=== PATIENT | male | born 1990 | race American Indian/Alaskan Native ===

== ENCOUNTER 2016-07-27 14:37 | Emergency (ER) | payer SELFPAY ==
--- NOTE | 2016-07-27 15:38 | Emergency Department Report ---
Chief Complaint: Urogenital-Male Stated Complaint: BUMP ON GENTILES Time Seen by Provider: 07/27/16 15:34 - HPI History of Present Illness: pt c/o bump on his "vanessa" - ROS Review of Systems: - discharge - dysuria - Exam Vital Signs: Vital Signs 07/27/16 15:30 Temperature 97.7 F Pulse Rate 107 H Respiratory 18 Rate Blood Pressure 125/66 O2 Sat by Pulse 100 Oximetry Physical Exam: pt looks well, non toxic gu exam not done in triage MSE screening note: Focused history and physical exam performed. Due to findings the following was ordered: ED Disposition for MSE Condition: Stable
--- NOTE | 2016-07-27 19:35 | Emergency Department Report ---
ED Male HPI - General Chief complaint: Urogenital-Male Stated complaint: BUMP ON GENTILES Time Seen by Provider: 07/27/16 15:34 Source: patient Mode of arrival: Ambulatory Limitations: No Limitations - History of Present Illness Initial comments: This is a 26-year-old male nontoxic well-nourished appearance. Presents with a bump in his penis. Patient stated noticed this morning. Patient stated had sexual intercourse this whole week including yesterday. Patient denies any new sexual partner. Patient is a heterosexual. Patient states tried to remove the bump with no success but has noticed slightly bleeding. Patient denies any urinary discharge, dysuria, or pain. Denies using condoms during sexual intercourse. Patient is unaware of partners STD hx or symptoms. MD Complaint: other (1mm penile ulcer ) -: Sudden, This morning Location: penis Radiation: none Severity scale (0 -10): 0 denies other symptoms. denies: discharge, swelling, mass, rash, urinary retention, blood in urine, dysuria, fever, nausea/vomiting, incontinence - Related Data Previous Rx's Medication Instructions Recorded Last Taken Type Dicyclomine [Bentyl] 10 mg PO QID PRN #20 capsule 12/03/15 Unknown Rx Famotidine [Pepcid] 20 mg PO QDAY #30 tablet 12/03/15 Unknown Rx Ondansetron [Zofran Odt] 4 mg PO QID PRN #20 tab.rapdis 12/03/15 Unknown Rx Allergies Allergy/AdvReac Type Severity Reaction Status Date / Time No Known Allergies Allergy Verified 07/07/15 13:28 ED Review of Systems ROS: Stated complaint: BUMP ON GENTILES Other details as noted in HPI Constitutional: denies: chills, fever Eyes: denies: eye pain, eye discharge, vision change ENT: denies: ear pain, throat pain Respiratory: denies: cough, shortness of breath, wheezing Cardiovascular: denies: chest pain, palpitations Endocrine: no symptoms reported Gastrointestinal: denies: abdominal pain, nausea, diarrhea Genitourinary: denies: urgency, dysuria Musculoskeletal: denies: back pain, joint swelling, arthralgia Skin: denies: rash, lesions Neurological: denies: headache, weakness, paresthesias Psychiatric: denies: anxiety, depression Hematological/Lymphatic: denies: easy bleeding, easy bruising ED Past Medical Hx - Past Medical History Previous Medical History?: No - Surgical History Past Surgical History?: No - Social History Smoking Status: Never Smoker Substance Use Type: Alcohol, Marijuana - Medications Home Medications: Home Medications Medication Instructions Recorded Confirmed Last Taken Type Dicyclomine [Bentyl] 10 mg PO QID PRN #20 capsule 12/03/15 Unknown Rx Famotidine [Pepcid] 20 mg PO QDAY #30 tablet 12/03/15 Unknown Rx Ondansetron [Zofran Odt] 4 mg PO QID PRN #20 tab.rapdis 12/03/15 Unknown Rx ED Physical Exam - General Limitations: No Limitations General appearance: alert, in no apparent distress - Head Head exam: Present: atraumatic, normocephalic - Eye Eye exam: Present: normal appearance - ENT ENT exam: Present: mucous membranes moist - Neck Neck exam: Present: normal inspection - Respiratory Respiratory exam: Present: normal lung sounds bilaterally. Absent: respiratory distress - Cardiovascular Cardiovascular Exam: Present: regular rate, normal rhythm. Absent: systolic murmur, diastolic murmur, rubs, gallop - GI/Abdominal GI/Abdominal exam: Present: soft, normal bowel sounds - Rectal Rectal exam: Present: deferred - exam: Present: normal inspection. Absent: testicular tenderness, urethral discharge, scrotal swelling, vertical testicular lie, circumcision External exam: Present: normal external exam, other (1mm penile ulcer). Absent : erythema, swelling - Expanded Exam Expanded Male exam: Absent: phimosis, paraphimosis, penile swelling, induration, erythema, perineal induration, balanitis - Extremities Exam Extremities exam: Present: normal inspection - Back Exam Back exam: Present: normal inspection - Neurological Exam Neurological exam: Present: alert, oriented X3 - Psychiatric Psychiatric exam: Present: normal affect, normal mood - Skin Skin exam: Present: warm, dry, intact, normal color. Absent: rash ED Course Vital Signs 07/27/16 07/27/16 15:30 20:05 Temperature 97.7 F Pulse Rate 107 H 50 L Respiratory 18 18 Rate Blood Pressure 125/66 Blood Pressure 136/84 [Right] O2 Sat by Pulse 100 100 Oximetry - Reevaluation(s) Reevaluation #1: 07/27/16 20:26 Vital Signs 07/27/16 07/27/16 15:30 20:05 Temperature 97.7 F Pulse Rate 107 H 50 L Respiratory 18 18 Rate Blood Pressure 125/66 Blood Pressure 136/84 [Right] O2 Sat by Pulse 100 100 Oximetry Reevaluation #2: 07/27/16 20:28 Vital Signs (72 hours) 07/27/16 07/27/16 07/27/16 15:30 20:05 20:28 Temperature 97.7 F Pulse Rate 107 H 50 L 78 Respiratory 18 18 Rate Blood Pressure 125/66 Blood Pressure 136/84 [Right] O2 Sat by Pulse 100 100 Oximetry ED Medical Decision Making - Medical Decision Making ED course: 26-year-old male that presents with 1 mm penile ulcer. 1- administered penicillin G 2.4 IM for possibility of syphilis. 2- I instructed it the patient that we aren't able to rule out HSV VS. Syphilis. 3- I instructed the patient to report to health department for further evaluation and treatment. 4- at this time the patient does not seem toxic or ill appearance. 5- patient is aware and agrees to discharge plan and treatment. No further questions noted at this time. Critical care attestation.: If time is entered above; I have spent that time in minutes in the direct care of this critically ill patient, excluding procedure time. ED Disposition Clinical Impression: Penile ulcer Disposition: DISCHARGED TO HOME OR SELFCARE Is pt being admited?: No Does the pt Need Aspirin: No Condition: Stable Instructions: Genital Herpes Simplex (ED), Syphilis (ED) Additional Instructions: Please follow up with health department further evaluation as was possible. Symptoms worsen this for better management. Referrals: PRIMARY CARE, [Primary Care Provider] - 3-5 Days [facility] [Referring] - [facility]
[2016-07-27] MEDS ORDERED: BICILLIN L-A IM ONE (19:42)
[2016-07-27 20:06] VITALS: BP 136/84
== END 2016-07-27 20:43 | disposition home or self-care (01) ==
LOC: ED 14:37
DX: N48.5 Ulcer of penis (principal); F12.90 Cannabis use, unspecified, uncomplicated
CPT/HCPCS: 96372; 99282; J0561

== ENCOUNTER 2018-09-18 16:56 | Emergency (ER) | payer SELFPAY ==
--- NOTE | 2018-09-18 18:38 | XRay Report ---
PROCEDURE: XR FOOT 3+V LT TECHNIQUE: Left foot series 3 views HISTORY: left foot pain COMPARISONS: FINDINGS: No fracture identified. No dislocation seen. Note is made of a dorsal osteophyte anterior process of the talus. No acute soft tissue abnormality identified. IMPRESSION: Dorsal osteophyte at the anterior process of the talus. This is nonspecific but could be seen with ta rsal coalition. Consider follow-up MRI if continued clinical concern.. This document is electronically signed by Chago Cifuentes MD., September 18 2018 06:36:05 PM ET
[2018-09-18] MEDS ORDERED: IBUPROFEN PO ONE (21:08)
[2018-09-18] MEDS ORDERED: DELTASONE PO ONE (21:08)
--- NOTE | 2018-09-18 21:50 | Emergency Department Report ---
ED Extremity Problem HPI - General Chief complaint: Extremity Problem,Nontraumatic Stated complaint: LFT FOOT/CANT PUT PRESSURE Time Seen by Provider: 09/18/18 21:00 Source: patient Mode of arrival: Ambulatory Limitations: No Limitations - History of Present Illness Initial comments: Patient is a 28-year-old -[place] male with no past medical history presents to the ED with complaint of acute onset persistent nontraumatic right foot pain mainly in the first MTP joint with swelling for the last 3 days. Patient admits to eating a lot of seafood. Patient denies fall, traumatic injury, nausea, vomiting, numbness and tingling of left foot, left ankle pain, dizziness, back pain, traumatic injury or fall and hit her lifting. MD Complaint: extremity pain (left foot), extremity swelling (left foot), joint swelling (left foot), joint paint (left foot) -: Sudden, days(s) (3) Location: left, lower extremity (left foot ), toe (lef great toe and 1st MTP joint) History of Same: No -: Yes myalgia, Yes arthralgia, No fever, No associated dyspnea, No associated chest pain Radiation: none Severity scale (0 -10): 10 Quality: aching, sharp Consistency: constant Improves with: nothing Worsens with: weight bearing, walking, exertion, palpation Associated Symptoms: denies other symptoms. denies: chest pain, shortness of breath, fever, myalgias, arthralgias, rash - Related Data Previous Rx's Medication Instructions Recorded Last Taken Type Dicyclomine [Bentyl] 10 mg PO QID PRN #20 capsule 12/03/15 Unknown Rx Famotidine [Pepcid] 20 mg PO QDAY #30 tablet 12/03/15 Unknown Rx Ondansetron [Zofran Odt] 4 mg PO QID PRN #20 tab.rapdis 12/03/15 Unknown Rx Ibuprofen [Motrin] 600 mg PO Q8H PRN #30 tablet 12/18/17 Unknown Rx traMADol [Ultram 50 MG tab] 50 mg PO Q6HR PRN #20 tablet 12/18/17 Unknown Rx Colchicine 0.6 mg PO Q8H PRN #15 capsule 09/18/18 Unknown Rx Indomethacin 50 mg PO Q8H PRN #30 capsule 09/18/18 Unknown Rx predniSONE [Deltasone] 60 mg PO QDAY #15 tab 09/18/18 Unknown Rx traMADol [Ultram] 50 mg PO Q6HR PRN #15 tablet 09/18/18 Unknown Rx Allergies Allergy/AdvReac Type Severity Reaction Status Date / Time No Known Allergies Allergy Verified 07/07/15 13:28 ED Review of Systems ROS: Stated complaint: LFT FOOT/CANT PUT PRESSURE Other details as noted in HPI Constitutional: no symptoms reported. denies: chills, fever Eyes: denies: eye pain, eye discharge, vision change ENT: denies: ear pain, throat pain Respiratory: denies: cough, shortness of breath, wheezing Cardiovascular: denies: chest pain, palpitations Endocrine: no symptoms reported Gastrointestinal: denies: abdominal pain, nausea, diarrhea Genitourinary: denies: urgency, dysuria Musculoskeletal: joint swelling (left foot mild swelling), arthralgia (left foot). denies: back pain Skin: denies: rash, lesions Neurological: denies: headache, weakness, paresthesias Psychiatric: denies: anxiety, depression Hematological/Lymphatic: denies: easy bleeding, easy bruising ED Past Medical Hx - Past Medical History Previous Medical History?: No Hx Asthma: No - Surgical History Past Surgical History?: No Hx Appendectomy: No - Social History Smoking Status: Never Smoker Substance Use Type: None - Medications Home Medications: Home Medications Medication Instructions Recorded Confirmed Last Taken Type Dicyclomine [Bentyl] 10 mg PO QID PRN #20 capsule 12/03/15 Unknown Rx Famotidine [Pepcid] 20 mg PO QDAY #30 tablet 12/03/15 Unknown Rx Ondansetron [Zofran Odt] 4 mg PO QID PRN #20 tab.rapdis 12/03/15 Unknown Rx Ibuprofen [Motrin] 600 mg PO Q8H PRN #30 tablet 12/18/17 Unknown Rx traMADol [Ultram 50 MG tab] 50 mg PO Q6HR PRN #20 tablet 12/18/17 Unknown Rx Colchicine 0.6 mg PO Q8H PRN #15 capsule 09/18/18 Unknown Rx Indomethacin 50 mg PO Q8H PRN #30 capsule 09/18/18 Unknown Rx predniSONE [Deltasone] 60 mg PO QDAY #15 tab 09/18/18 Unknown Rx traMADol [Ultram] 50 mg PO Q6HR PRN #15 tablet 09/18/18 Unknown Rx ED Physical Exam - General Limitations: No Limitations General appearance: alert, in no apparent distress - Head Head exam: Present: atraumatic, normocephalic, normal inspection - Eye Eye exam: Present: normal appearance, PERRL, EOMI Pupils: Present: normal accommodation - ENT ENT exam: Present: normal exam, normal orophraynx, mucous membranes moist, TM's normal bilaterally, normal external ear exam - Neck Neck exam: Present: normal inspection, full ROM - Respiratory Respiratory exam: Present: normal lung sounds bilaterally. Absent: respiratory distress, wheezes, rales, rhonchi, chest wall tenderness, accessory muscle use, prolonged expiratory - Cardiovascular Cardiovascular Exam: Present: regular rate, normal rhythm, normal heart sounds. Absent: systolic murmur, diastolic murmur, rubs, gallop - GI/Abdominal GI/Abdominal exam: Present: soft, normal bowel sounds. Absent: distended, guarding, rebound, hyperactive bowel sounds - Rectal Rectal exam: Present: deferred - Extremities Exam Extremities exam: Present: normal inspection, tenderness (left foot, 1st MTP joint), normal capillary refill, joint swelling (left foot, 1st MTP joint) - Back Exam Back exam: Present: normal inspection, full ROM. Absent: tenderness, CVA tenderness (R), CVA tenderness (L), muscle spasm, paraspinal tenderness, vertebral tenderness - Neurological Exam Neurological exam: Present: alert, oriented X3, CN II-XII intact, normal gait, reflexes normal - Psychiatric Psychiatric exam: Present: normal affect, normal mood - Skin Skin exam: Present: warm, dry, intact, normal color. Absent: rash ED Course Vital Signs 09/18/18 09/18/18 17:12 21:23 Temperature 98.2 F Pulse Rate 87 Respiratory 16 16 Rate Blood Pressure 136/95 O2 Sat by Pulse 100 Oximetry - Reevaluation(s) Reevaluation #1: 09/18/18 21:51 Patient is alert and oriented 3 and is not in distress. Patient was treated for pain in the ED and left foot x-ray shows no acute fractures or subluxations. There is however osteoarthritis changes in the left ankle and foot. Patient was discharged home on medications and advised to follow-up with his primary care physician intervention days for reevaluation or return to the ED immediately if symptoms get worse. ED Medical Decision Making - Radiology Data Radiology results: report reviewed, image reviewed Left foot x-ray: No acute fractures or subluxations - Medical Decision Making Patient is alert and oriented 3 and is not in distress. Patient was treated for pain in the ED and left foot x-ray shows no acute fractures or subluxations. There is however osteoarthritis changes in the left ankle and foot. Patient was discharged home on medications and advised to follow-up with his primary care physician intervention days for reevaluation or return to the ED immediately if symptoms get worse. - Differential Diagnosis Left foot pain; Chronic osteoathritis, Gouty arthropathy Critical care attestation.: If time is entered above; I have spent that time in minutes in the direct care of this critically ill patient, excluding procedure time. ED Disposition Clinical Impression: Acute gouty arthropathy, Chronic osteoarthritis, Muscle strain Muscle strain of left foot Qualifiers: Encounter type: initial encounter Qualified Code(s): S96.912A - Strain of unspecified muscle and tendon at ankle and foot level, left foot, initial encounter Disposition: TO HOME OR SELFCARE Is pt being admited?: No Does the pt Need Aspirin: No Condition: Stable Instructions: Muscle Strain (ED), Acute Gouty Arthritis (ED), Osteoarthritis (ED) Additional Instructions: Take medications, drink plenty of fluids and follow-up with your primary care physician in 5-7 days for reevaluation. Return to the ED immediately if symptoms get worse. Prescriptions: Colchicine 0.6 mg PO Q8H PRN #15 capsule PRN Reason: Pain , Severe (7-10) predniSONE [Deltasone] 60 mg PO QDAY #15 tab Indomethacin 50 mg PO Q8H PRN #30 capsule PRN Reason: Pain , Severe (7-10) traMADol [Ultram] 50 mg PO Q6HR PRN #15 tablet PRN Reason: Pain Referrals: WILLIE SIM MD [Primary Care Provider] - 3-5 Days Time of Disposition: 21:54 Print Language: PORTUGUESE
[2018-09-18 22:02] VITALS: BP 116/63
== END 2018-09-18 22:15 | disposition home or self-care (01) ==
LOC: ED 16:56
DX: S96.912A Strain of unspecified muscle and tendon at ankle and foot level, left foot, initial encounter (principal); M10.9 Gout, unspecified; M19.90 Unspecified osteoarthritis, unspecified site; G89.29 Other chronic pain; Z79.899 Other long term (current) drug therapy; X58.XXXA Exposure to other specified factors, initial encounter; Y93.89 Activity, other specified; Y92.89 Other specified places as the place of occurrence of the external cause; Y99.8 Other external cause status
CPT/HCPCS: 73630; 99283; J7512

== ENCOUNTER 2019-01-07 12:04 | Emergency (ER) | payer SELFPAY ==
[2019-01-07 12:26] VITALS: BP 140/81
--- NOTE | 2019-01-07 12:28 | Event Note ---
ED Screening Note Date of service: 01/07/19 Time: 12:24 ED Screening Note: This is a 28 y.o. M. that presents to the ER with dizziness and vomiting for a few hours today. Current marijuana smoker This initial assessment/diagnostic orders/clinical plan/treatment(s) is/are subject to change based on patients health status, clinical progression and re- assessment by fellow clinical providers in the ED. Further treatment and workup at subsequent clinical providers discretion. Patient/guardian urged not to elope from the ED as their condition may be serious if not clinically assessed and managed. Initial orders include: Labs
[2019-01-07 13:08] LABS: Basophils % (Auto) 0.5 % (0.0-1.8); Eosinophils # (Auto) 0.1 K/mm3 (0.0-0.4); Eosinophils % (Auto) 0.9 % (0.0-4.3); Hematocrit 44.8 % (35.5-45.6); Hemoglobin 14.1 gm/dl (11.8-15.2); Lymphocytes # (Auto) 1.4 K/mm3 (1.2-5.4); Lymphocytes % (Auto) 14.3 % (13.4-35.0); Mean Corpuscular HGB Conc 32 % (32-34); Mean Corpuscular Volume 73 fl (84-94); Monocytes # (Auto) 0.6 K/mm3 (0.0-0.8); Monocytes % (Auto) 6.6 % (0.0-7.3); Platelet Count 132 K/mm3 (140-440); Red Blood Count 6.12 M/mm3 (3.65-5.03); Red Cell Distribution Width 15.8 % (13.2-15.2)
[2019-01-07 13:23] LABS: Alanine Aminotransferase 24 units/L (7-56); Albumin 4.6 g/dL (3.9-5); BUN/Creatinine Ratio 14; Blood Urea Nitrogen 13 mg/dL (9-20); Hemolysis Index 9
[2019-01-07] MEDS ORDERED: ONDANSETRON 4 MG ODT TAB PO ONE (13:26)
[2019-01-07 13:27] LABS: Bilirubin,Urine NEG (Negative); Blood,Urine NEG (Negative); Color,Urine Yellow (Yellow); Protein,Urine <15 mg/dL mg/dL (Negative); Urobilinogen,Urine < 2.0 mg/dL (<2.0)
[2019-01-07] MEDS ORDERED: SODIUM CHLORIDE 0.9% 1000 ML 1,000 ML IV ONE (14:15)
--- NOTE | 2019-01-07 16:18 | Emergency Department Report ---
ED N/V/D HPI - General Chief complaint: Nausea/Vomiting/Diarrhea Stated complaint: LIGHT HEADED/DIZZY Time Seen by Provider: 01/07/19 12:24 Source: patient, EMS Mode of arrival: Ambulatory Limitations: No Limitations - History of Present Illness Initial comments: 28-year-old male with no past medical or surgical history presents to Hospital complaining of nausea and vomiting this morning. Patient had 2 episodes of vomiting. States he's had poor appetite and decreased by mouth intake today. He complains of feeling lightheaded. 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 He complained of lightheadedness preceding syncope. He denies chest pain, shortness of breath, palpitations, headache, or abdominal pain. No fever, hematochezia, melena, or hematemesis reported. - Related Data Previous Rx's Medication Instructions Recorded Last Taken Type Dicyclomine [Bentyl] 10 mg PO QID PRN #20 capsule 12/03/15 Unknown Rx Famotidine [Pepcid] 20 mg PO QDAY #30 tablet 12/03/15 Unknown Rx Ondansetron [Zofran Odt] 4 mg PO QID PRN #20 tab.rapdis 12/03/15 Unknown Rx Ibuprofen [Motrin] 600 mg PO Q8H PRN #30 tablet 12/18/17 Unknown Rx traMADol [Ultram 50 MG tab] 50 mg PO Q6HR PRN #20 tablet 12/18/17 Unknown Rx Colchicine 0.6 mg PO Q8H PRN #15 capsule 09/18/18 Unknown Rx Indomethacin 50 mg PO Q8H PRN #30 capsule 09/18/18 Unknown Rx predniSONE [Deltasone] 60 mg PO QDAY #15 tab 09/18/18 Unknown Rx traMADol [Ultram] 50 mg PO Q6HR PRN #15 tablet 09/18/18 Unknown Rx Ondansetron [Zofran Odt] 4 mg PO Q8HR PRN #20 tab.rapdis 01/07/19 Unknown Rx Allergies Allergy/AdvReac Type Severity Reaction Status Date / Time No Known Allergies Allergy Verified 07/07/15 13:28 ED Review of Systems ROS: Stated complaint: LIGHT HEADED/DIZZY Other details as noted in HPI Comment: All other systems reviewed and negative ED Past Medical Hx - Past Medical History Hx Asthma: No - Surgical History Hx Appendectomy: No - Social History Smoking Status: Never Smoker Substance Use Type: Marijuana - Medications Home Medications: Home Medications Medication Instructions Recorded Confirmed Last Taken Type Dicyclomine [Bentyl] 10 mg PO QID PRN #20 capsule 12/03/15 Unknown Rx Famotidine [Pepcid] 20 mg PO QDAY #30 tablet 12/03/15 Unknown Rx Ondansetron [Zofran Odt] 4 mg PO QID PRN #20 tab.rapdis 12/03/15 Unknown Rx Ibuprofen [Motrin] 600 mg PO Q8H PRN #30 tablet 12/18/17 Unknown Rx traMADol [Ultram 50 MG tab] 50 mg PO Q6HR PRN #20 tablet 12/18/17 Unknown Rx Colchicine 0.6 mg PO Q8H PRN #15 capsule 09/18/18 Unknown Rx Indomethacin 50 mg PO Q8H PRN #30 capsule 09/18/18 Unknown Rx predniSONE [Deltasone] 60 mg PO QDAY #15 tab 09/18/18 Unknown Rx traMADol [Ultram] 50 mg PO Q6HR PRN #15 tablet 09/18/18 Unknown Rx Ondansetron [Zofran Odt] 4 mg PO Q8HR PRN #20 tab.rapdis 01/07/19 Unknown Rx ED Physical Exam - General Limitations: No Limitations - Other Other exam information: Gen.: No acute distress Head: Atraumatic Eyes: Normal appearance ENT: Moist mucous membranes Neck: Normal appearance, no posterior midline tenderness, no meningismus Chest: Clear to auscultation bilaterally Cardiovascular: Regular rate and rhythm Abdomen: Normal appearance, soft, nontender, no rebound or guarding, normal bowel sounds Back: Normal appearance, nontender Extremity: Full range of motion, normal appearance Neuro: Alert and oriented 3, clear speech, no focal motor or sensory deficit Psychiatric: Appropriate Skin: No rash ED Course Vital Signs 01/07/19 12:24 Temperature 97.9 F Pulse Rate 70 Respiratory 18 Rate Blood Pressure 140/81 O2 Sat by Pulse 99 Oximetry ED Medical Decision Making - Lab Data Result diagrams: 01/07/19 12:40 01/07/19 12:40 Lab Results 01/07/19 01/07/19 01/07/19 Range/Units 12:40 12:40 Unknown WBC 9.7 (4.5-11.0) K/mm3 RBC 6.12 H (3.65-5.03) M/mm3 Hgb 14.1 (11.8-15.2) gm/dl Hct 44.8 (35.5-45.6) % MCV 73 L (84-94) fl MCH 23 L (28-32) pg MCHC 32 (32-34) % RDW 15.8 H (13.2-15.2) % Plt Count 132 L (140-440) K/mm3 Lymph % (Auto) 14.3 (13.4-35.0) % [place] % (Auto) 6.6 (0.0-7.3) % Eos % (Auto) 0.9 (0.0-4.3) % Baso % (Auto) 0.5 (0.0-1.8) % Lymph # 1.4 (1.2-5.4) K/mm3 [place] # 0.6 (0.0-0.8) K/mm3 Eos # 0.1 (0.0-0.4) K/mm3 Baso # 0.0 (0.0-0.1) K/mm3 Seg Neutrophils % 77.7 H (40.0-70.0) % Seg Neutrophils # 7.6 (1.8-7.7) K/mm3 Sodium 144 (137-145) mmol/L Potassium 3.6 (3.6-5.0) mmol/L Chloride 108.0 H (98-107) mmol/L Carbon Dioxide 25 (22-30) mmol/L Anion Gap 15 mmol/L BUN 13 (9-20) mg/dL Creatinine 0.9 (0.8-1.5) mg/dL Estimated GFR > 60 ml/min BUN/Creatinine Ratio 14 % Glucose 85 (75-100) mg/dL Calcium 9.0 (8.4-10.2) mg/dL Total Bilirubin 0.80 (0.1-1.2) mg/dL AST 27 (5-40) units/L ALT 24 (7-56) units/L Alkaline Phosphatase 56 (35-129) units/L Total Protein 7.2 (6.3-8.2) g/dL Albumin 4.6 (3.9-5) g/dL Albumin/Globulin Ratio 1.8 % Urine Color Yellow (Yellow) Urine Turbidity Clear (Clear) Urine pH 7.0 (5.0-7.0) Ur Specific [place] 1.017 (1.003-1.030) Urine Protein <15 mg/dl (Negative) mg/dL Urine Glucose (UA) Neg (Negative) mg/dL Urine Ketones Neg (Negative) mg/dL Urine Blood Neg (Negative) Urine Nitrite Neg (Negative) Urine Bilirubin Neg (Negative) Urine Urobilinogen < 2.0 (<2.0) mg/dL Ur Leukocyte Esterase Neg (Negative) Urine WBC (Auto) 1.0 (0.0-6.0) /HPF Urine RBC (Auto) 1.0 (0.0-6.0) /HPF U Epithel Cells (Auto) < 1.0 (0-13.0) /HPF - EKG Data -: EKG Interpreted by Me EKG shows normal: sinus rhythm, ST-T waves (early repol pattern) Rate: normal - Medical Decision Making Patient feeling much better after 1 L normal saline and by mouth Zofran. He tolerated a large plate of food prior to discharge. - Differential Diagnosis anemia, dehydration, vasovagal, gastroenteritis, infection Critical Care Time: No Critical care attestation.: If time is entered above; I have spent that time in minutes in the direct care of this critically ill patient, excluding procedure time. ED Disposition Clinical Impression: Vomiting, Light-headed feeling Disposition: DC-01 TO HOME OR SELFCARE Is pt being admited?: No Does the pt Need Aspirin: No Condition: Stable Instructions: Acute Nausea and Vomiting (ED), Lightheadedness (ED) Additional Instructions: Take the medication as prescribed. Follow-up with your doctor or with the doctor/clinic provided. Return if symptoms worsen as indicated by your discharge instructions. Prescriptions: Ondansetron [Zofran Odt] 4 mg PO Q8HR PRN #20 tab.rapdis PRN Reason: Nausea And Vomiting Referrals: WILLIE SIM MD [Primary Care Provider] - 3-5 Days CHRIS EDUARDO MD [Staff Physician] - 3-5 Days Forms: Work/School Release Form(ED) Time of Disposition: 16:18
== END 2019-01-07 16:59 | disposition home or self-care (01) ==
LOC: ED 12:04
DX: R42 Dizziness and giddiness (principal); R11.2 Nausea with vomiting, unspecified; F12.10 Cannabis abuse, uncomplicated; Z79.899 Other long term (current) drug therapy; Z79.1 Long term (current) use of non-steroidal anti-inflammatories (NSAID)
CPT/HCPCS: 36415; 80053; 81001; 85025; 93005; 93010; 96360; 99284; J7030; Q0162

== ENCOUNTER 2019-05-17 15:26 | Emergency (ER) | payer SELFPAY ==
[2019-05-17 18:01] VITALS: BP 141/101
[2019-05-17] MEDS ORDERED: FAMOTIDINE 20 MG TAB PO ONE (19:05)
[2019-05-17] MEDS ORDERED: ONDANSETRON 4 MG ODT TAB PO ONE (19:05)
[2019-05-17] MEDS ORDERED: DICYCLOMINE 20 MG TAB PO ONE (19:05)
--- NOTE | 2019-05-17 20:56 | Emergency Department Report ---
ED N/V/D HPI - General Chief complaint: Abdominal Pain Stated complaint: ABD PAIN Source: patient Mode of arrival: Ambulatory Limitations: No Limitations - History of Present Illness Initial comments: Patient is a 29-year-old -[place] male with no past medical history who presents to the ED with complaint of acute onset persistent intermittent nausea and vomiting with epigastric pain after eating at a [place] restaurant 2 days ago. Patient states that the last time he had nausea and vomiting was about 10 hours ago. Patient denies dizziness, diarrhea, chest pain, shortness of breath, sore throat, fever, chills, cough, dizziness, headache, dysuria, urinary frequency and urgency or vision changes and hematemesis. MD complaint: nausea, vomiting, abdominal pain -: Sudden, days(s) (2) Description of Vomiting: food contents, watery Associated Abdominal Pain: Yes Radiation: none Severity: moderate Pain Scale: 5 Quality: cramping, aching Consistency: intermittent Improves with: none Worsens with: vomiting Associated Symptoms: denies other symptoms, myalgias, loss of appetite. denies: chest pain, diaphoresis, fever/chills, headaches, malaise, nausea/vomiting, rash, shortness of breath, syncope, weakness - Related Data Previous Rx's Medication Instructions Recorded Last Taken Type Dicyclomine [Bentyl] 10 mg PO QID PRN #20 capsule 12/03/15 Unknown Rx Famotidine [Pepcid] 20 mg PO QDAY #30 tablet 12/03/15 Unknown Rx Ondansetron [Zofran Odt] 4 mg PO QID PRN #20 tab.rapdis 12/03/15 Unknown Rx Ibuprofen [Motrin] 600 mg PO Q8H PRN #30 tablet 12/18/17 Unknown Rx traMADoL [Ultram 50 MG tab] 50 mg PO Q6HR PRN #20 tablet 12/18/17 Unknown Rx Colchicine 0.6 mg PO Q8H PRN #15 capsule 09/18/18 Unknown Rx Indomethacin 50 mg PO Q8H PRN #30 capsule 09/18/18 Unknown Rx predniSONE [Deltasone] 60 mg PO QDAY #15 tab 09/18/18 Unknown Rx traMADoL [Ultram] 50 mg PO Q6HR PRN #15 tablet 09/18/18 Unknown Rx Ondansetron [Zofran Odt] 4 mg PO Q8HR PRN #20 tab.rapdis 01/07/19 Unknown Rx Dicyclomine [Bentyl] 20 mg PO Q6H PRN #24 tablet 05/17/19 Unknown Rx Famotidine [Pepcid] 20 mg PO Q12H #30 tablet 05/17/19 Unknown Rx Ondansetron [Zofran Odt] 4 mg PO Q6HR PRN #20 tab.rapdis 05/17/19 Unknown Rx Allergies Allergy/AdvReac Type Severity Reaction Status Date / Time No Known Allergies Allergy Verified 05/17/19 15:29 ED Review of Systems ROS: Stated complaint: ABD PAIN Other details as noted in HPI Constitutional: denies: chills, fever Eyes: denies: eye pain, eye discharge, vision change ENT: denies: ear pain, throat pain Respiratory: denies: cough, shortness of breath, wheezing Cardiovascular: denies: chest pain, palpitations Endocrine: no symptoms reported Gastrointestinal: abdominal pain, nausea, vomiting. denies: diarrhea Genitourinary: denies: urgency, dysuria Musculoskeletal: denies: back pain, joint swelling, arthralgia Skin: denies: rash, lesions Neurological: denies: headache, weakness, paresthesias Psychiatric: denies: anxiety, depression Hematological/Lymphatic: denies: easy bleeding, easy bruising ED Past Medical Hx - Past Medical History Hx Asthma: No - Surgical History Hx Appendectomy: No - Social History Smoking Status: Current Some Day Smoker Substance Use Type: None - Medications Home Medications: Home Medications Medication Instructions Recorded Confirmed Last Taken Type Dicyclomine [Bentyl] 10 mg PO QID PRN #20 capsule 12/03/15 Unknown Rx Famotidine [Pepcid] 20 mg PO QDAY #30 tablet 12/03/15 Unknown Rx Ondansetron [Zofran Odt] 4 mg PO QID PRN #20 tab.rapdis 12/03/15 Unknown Rx Ibuprofen [Motrin] 600 mg PO Q8H PRN #30 tablet 12/18/17 Unknown Rx traMADoL [Ultram 50 MG tab] 50 mg PO Q6HR PRN #20 tablet 12/18/17 Unknown Rx Colchicine 0.6 mg PO Q8H PRN #15 capsule 09/18/18 Unknown Rx Indomethacin 50 mg PO Q8H PRN #30 capsule 09/18/18 Unknown Rx predniSONE [Deltasone] 60 mg PO QDAY #15 tab 09/18/18 Unknown Rx traMADoL [Ultram] 50 mg PO Q6HR PRN #15 tablet 09/18/18 Unknown Rx Ondansetron [Zofran Odt] 4 mg PO Q8HR PRN #20 tab.rapdis 01/07/19 Unknown Rx Dicyclomine [Bentyl] 20 mg PO Q6H PRN #24 tablet 05/17/19 Unknown Rx Famotidine [Pepcid] 20 mg PO Q12H #30 tablet 05/17/19 Unknown Rx Ondansetron [Zofran Odt] 4 mg PO Q6HR PRN #20 tab.rapdis 05/17/19 Unknown Rx ED Physical Exam - General Limitations: No Limitations General appearance: alert, in no apparent distress - Head Head exam: Present: atraumatic, normocephalic, normal inspection - Eye Eye exam: Present: normal appearance, PERRL, EOMI Pupils: Present: normal accommodation - ENT ENT exam: Present: normal exam, normal orophraynx, mucous membranes moist, TM's normal bilaterally, normal external ear exam - Neck Neck exam: Present: normal inspection, full ROM. Absent: tenderness - Respiratory Respiratory exam: Present: normal lung sounds bilaterally. Absent: respiratory distress, wheezes, rales, rhonchi, chest wall tenderness, accessory muscle use, decreased breath sounds - Cardiovascular Cardiovascular Exam: Present: regular rate, normal rhythm, normal heart sounds. Absent: systolic murmur, diastolic murmur, rubs, gallop - GI/Abdominal GI/Abdominal exam: Present: soft, normal bowel sounds. Absent: tenderness, guarding, rebound, hyperactive bowel sounds, hypoactive bowel sounds, organomegaly - Extremities Exam Extremities exam: Present: normal inspection, full ROM, normal capillary refill - Back Exam Back exam: Present: normal inspection, full ROM. Absent: tenderness, CVA tenderness (R), CVA tenderness (L), muscle spasm, vertebral tenderness - Neurological Exam Neurological exam: Present: alert, oriented X3, CN II-XII intact, normal gait, reflexes normal - Psychiatric Psychiatric exam: Present: normal affect, normal mood - Skin Skin exam: Present: warm, dry, intact, normal color. Absent: rash ED Course Vital Signs 05/17/19 15:45 Temperature 97.6 F Pulse Rate 60 Respiratory 18 Rate Blood Pressure 141/101 [Right] O2 Sat by Pulse 100 Oximetry ED Medical Decision Making - Medical Decision Making Patient is a 29-year-old male who presented to the ED with intermittent nausea and vomiting and epigastric pain for 2 days intermittently, the last time all emesis was 10 nausea. In the ED, patient is alert and oriented 3 and is not in distress with normal vital signs. Patient was treated for nausea and vomiting and pain and on reevaluation, patient's nausea and vomiting has resolved and patient past oral Fluid challenge in the ED without nausea and vomiting. Patient was discharged home on medications and advised to maintain a clear liquid diet for 12-24's, take antiemetics and pain medication as well as antacids and follow up with his primary care physician in 7-10 days for re evaluation. Patient was advised to return to the ED immediately if symptoms get worse. - Differential Diagnosis Gastroenenteritis; GERD; Gastritis; Viral syndrome Critical care attestation.: If time is entered above; I have spent that time in minutes in the direct care of this critically ill patient, excluding procedure time. ED Disposition Clinical Impression: Viral gastroenteritis, Nausea and vomiting in adult patient Disposition: DC-01 TO HOME OR SELFCARE Is pt being admited?: No Does the pt Need Aspirin: No Condition: Stable Instructions: Acute Nausea and Vomiting (ED), Gastroenteritis (ED) Additional Instructions: Maintain a clear liquid diet for 12-24 hours, take medication with food, drink plenty of fluids and follow up with your primary care physician in 5-7 days for reevaluation. Return to the ED immediately if symptoms get worse. Prescriptions: Dicyclomine [Bentyl] 20 mg PO Q6H PRN #24 tablet PRN Reason: Pain , Severe (7-10) Famotidine [Pepcid] 20 mg PO Q12H #30 tablet Ondansetron [Zofran Odt] 4 mg PO Q6HR PRN #20 tab.rapdis PRN Reason: Nausea Referrals: CHRIS EDUARDO MD [Staff Physician] - 3-5 Days Time of Disposition: 20:53 Print Language: DUTCH
== END 2019-05-17 21:42 | disposition home or self-care (01) ==
LOC: ED 15:26
DX: A08.4 Viral intestinal infection, unspecified (principal); F17.200 Nicotine dependence, unspecified, uncomplicated; Z79.899 Other long term (current) drug therapy
CPT/HCPCS: 99282; Q0162

== ENCOUNTER 2019-07-22 17:41 | Emergency (ER) | payer SELFPAY ==
[2019-07-22 17:49] VITALS: BP 140/93
== END 2019-07-22 17:50 | disposition left against medical advice (07) ==
LOC: ED 17:41
DX: R10.9 Unspecified abdominal pain (principal); Z53.21 Procedure and treatment not carried out due to patient leaving prior to being seen by health care provider